=== PATIENT | female | born 1995 | race Caucasian/White ===

== ENCOUNTER 2018-04-02 01:33 | Emergency (ER) | payer BC ==
[~2018-04-02] VITALS: Ht 167.6 cm; Wt 62.5 kg
[2018-04-02] MEDS ORDERED: TRAZ100T15 PO (01:43)
[2018-04-02] MEDS ORDERED: SERT100T PO (01:43)
[2018-04-02] MEDS ORDERED: PROP10TA PO (01:43)
[2018-04-02 03:07] VITALS: BP 112/89
== END 2018-04-02 03:09 | disposition home or self-care (01) ==
LOC: ED 02:14
DX: J02.9 Acute pharyngitis, unspecified (principal); J01.00 Acute maxillary sinusitis, unspecified
CPT/HCPCS: 87081; 87880; 99284